=== PATIENT | male | born 1940 | race American Indian/Alaskan Native ===

== ENCOUNTER 2020-01-01 07:48 | Day surgery (SDC) | payer MEDICARE ==
[2020-01-01] MEDS ORDERED: SODIUM CHLORIDE 0.9% 500 ML 500 ML IV SCH (09:00)
[2020-01-01 09:28] LABS: INR 1.34 (0.87-1.13)
[2020-01-01 09:29] LABS: Hematocrit 31.5 % (35.5-45.6); Hemoglobin 9.8 gm/dl (11.8-15.2); Mean Corpuscular HGB Conc 31 % (32-34); Mean Corpuscular Volume 92 fl (84-94); Partial Thromboplastin Time 40.2 Sec. (24.2-36.6); Platelet Count 386 K/mm3 (140-440); Red Blood Count 3.42 M/mm3 (3.65-5.03); Red Cell Distribution Width 14.3 % (13.2-15.2)
[2020-01-01] MEDS ORDERED: oxyCODONE /ACETAMINOPHEN 5-325MG TAB PO ONE (09:30)
[2020-01-01 09:45] LABS: BUN/Creatinine Ratio 26; Blood Urea Nitrogen 31 mg/dL (9-20); Calcium 8.7 mg/dL (8.4-10.2); Hemolysis Index 0
[2020-01-01] MEDS ORDERED: LIDOCAINE 1%/EPINEPHRINE 1:100,000 VIAL (20 ML) INFILTRATI ONE (10:39)
[2020-01-01] MEDS ORDERED: HEPARIN 10,000 UNITS/10 ML VIAL ONE (10:39)
[2020-01-01] MEDS ORDERED: MIDAZOLAM 2 MG/2 ML INJ ONE (10:40)
[2020-01-01] MEDS ORDERED: fentaNYL 100 MCG/2 ML INJ ONE (10:40)
--- NOTE | 2020-01-01 10:46 | Short Stay Summary ---
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 who presents for diagnostic angiogram - History Principal diagnosis: Bilateral lower extremity gangrene Past Medical History: CAD, diabetes, PVD, stroke - Allergies and Medications Current Medications: Allergies No Known Allergies Allergy (Unverified 01/01/20 07:51) Home Medications Medication Instructions Recorded Confirmed Last Taken Type Aspirin EC [Halfprin EC] 81 mg PO DAILY 01/01/20 01/01/20 12/31/19 History 81 mg Clindamycin [Clindamycin CAP] 1 tab PO TID 01/01/20 01/01/20 12/31/19 History 300 mg Furosemide [Lasix TAB] 20 mg PO DAILY 01/01/20 01/01/20 12/31/19 History 20 mg Insulin Detemir [Levemir Flextouch] 20 units SQ QHS 01/01/20 01/01/20 12/30/19 History 20 units carvediloL [Coreg] 6.25 mg PO DAILY 01/01/20 01/01/20 12/31/19 History 6.25mg oxyCODONE /ACETAMINOPHEN [Percocet 1 tab PO Q4H PRN 01/01/20 01/01/20 01/01/20 09:16 History 5/325 mg] 1 tab Active Medications Sodium Chloride (Nacl 0.9% 500 Ml) 500 mls @ 50 mls/hr IV DIRECT GORDON Last Admin: 01/01/20 09:17 Dose: 50 mls/hr Documented by: - Physical exam General appearance: no acute distress Lungs: Normal air movement Extremities: abnormal (gangrene of the lower extremities, nonpalpable pedal pulses) - Brief post op/procedure progress note Date of procedure: 01/01/20 Pre-op diagnosis: Bilateral lower extremity peripheral vascular disease with g maria antonia Post-op diagnosis: same Procedure: 1. Ultrasound-guided access of the left radial artery. 2. Selection of the abdominal aorta with angiography. 3. Selection of the right superficial femoral artery with angiography of the right lower extremity. 4. Selection of the left superficial femoral artery with angiography of the left lower extremity. Anesthesia: local Surgeon: REI FONTENOT Estimated blood loss: minimal Condition: stable - Hospital course Hospital course: Patient tolerated the procedure well. No immediate postprocedural complication. Patient will need revascularization of the bilateral lower extremities, left side for right. - Disposition Condition at discharge: Stable Disposition: [id number] TO HOME OR SELFCARE - Discharge Diagnoses (1) Diabetes mellitus due to underlying condition with foot ulcer Status: Acute (2) Gangrene due to peripheral vascular disease Status: Acute (3) Critical ischemia of lower extremity Status: Acute Short Stay Discharge Plan Activity: advance as tolerated Weight Bearing Status: Weight Bear as Tolerated Diet: regular Wound: keep clean and dry, other (Do not lift more than 10 pounds with left upper extremity for 1 week) Follow up with: PRIMARY CAREMD [Primary Care Provider] - 7 Days Forms: Post Arteriogram Instruct
[2020-01-01] MEDS ORDERED: NITROGLYCERIN SYRINGE 3 ML ONE (10:49)
[2020-01-01] MEDS: HEPARIN/NS 5000 UNIT/500ML 500 ML IR ONE ×2 (11:02→11:04)
[2020-01-01] MEDS: VERAPAMIL 5 MG/2 ML INJ ONE ×2 (11:02→11:05)
[2020-01-01 12:19] LABS: Basophils % (Manual) 0 % (0.0-1.8); Eosinophils % (Manual) 0 % (0.0-4.3); Total Cells Counted 100
[2020-01-01 12:20] LABS: Platelet Estimate Consistent w Auto; RBC Morphology Normal
--- NOTE | 2020-01-01 12:28 | Operative Report ---
Operative Report Operative Report: EXAM: 1. Ultrasound-guided access of the left radial artery. 2. Selection of the abdominal aorta with angiography. 3. Selection of the right superficial femoral artery with angiography of the right lower extremity. 4. Selection of the left superficial femoral artery with angiography of the left lower extremity. DATE: 01/01/2020 YACHT BUILDER: REI FONTENOT MD INDICATION: Bilateral lower extremity gangrene with nonpalpable pedal pulses with critical limb ischemia requiring diagnostic angiography. MEDICATIONS: Please see nursing report for full details. DEVICES: None. CONTRAST: Please see Shoe Repairer Apprentice report for full details. PROCEDURE: The risks, benefits, and alternatives were discussed with the patient; written informed consent was obtained. The left wrist was prepped and draped in a sterile fashion. The left radial artery was patent with ultrasound and had a strong pulse. Under direct sonographic guidance, the artery was accessed with a 21-gauge micropuncture needle. 0.018 inch wire was passed into the radial artery. Needle was exchanged for a 4/5 glide sheath slender sheath. Radial cocktail was administered. Catheter was then used to select the descending thoracic aorta, and the abdominal aorta and the infrarenal abdominal aorta. Digital subtraction angiography was performed. Catheter was exchanged for a 4 [place] [employer] angled catheter and used to select the right superficial femoral artery. Digital subtraction angiography was performed. Catheter was retracted and angiography was repeated multiple times until the entire right lower extremity was imaged. Catheter was then used to select the left superficial femoral artery and digital subtraction angiography was performed. Catheter was retracted and angiography was repeated multiple times until the entire left lower extremity was imaged. At this point, all wires, catheters, and sheaths were removed and TR band was applied. Patient tolerated the procedure well. No immediate postprocedural complication. FINDINGS: Aorta: The infrarenal abdominal aorta is patent. Right lower extremity: The right common iliac artery, external iliac artery, common femoral artery, and profunda femoral artery are patent. The right superficial femoral artery demonstrates multifocal 50 to 70% narrowings in the proximal and midportion of the vessel with a focal 80 to 90% narrowing in the distal portion of the superficial femoral artery. The [id number] popliteal artery has a 20 to 30% narrowing, and the midportion of the vessel has a focal 50% narrowing. This tapers into a focal 90% below the knee popliteal artery narrowing, but the below the knee popliteal artery a centimeter below that is focal narrowing becomes occluded. It does not reconstitute until the mid posterior tibial artery which is patent until the ankle at which point there is a 3 cm 90% narrowing. The anterior tibial and peroneal arteries do not reconstitute. Left lower extremity: The left common iliac artery, external iliac artery, common femoral artery, and profundofemoral artery are patent. The left proximal superficial femoral artery has a 30% narrowing, the midportion has a focal 60% narrowing, and the distal portion of the artery has a focal 80% narrowing. The popliteal artery has a [id number] 40% narrowing and a mid knee 50% narrowing. There is an unusual branching pattern from the popliteal artery with the anterior tibial artery arising from the level of the mid knee with a large collateral arising from it. Anterior tibial artery seems to become occluded within the proximal to mid calf without reconstitution. The tibioperoneal trunk has a 5 to 10 cm segment of underlying 50% to 60% narrowing with a superimposed 99% narrowing. The proximal posterior tibial artery has a focal 99% narrowing, the midportion of the vessel has a short segment occlusion, and the distal portion of the vessel has a 40% narrowing. There is underlying 30 to 40% narrowings in the posterior tibial artery. The peroneal artery is not well visualized and appears occluded without reconstitution. IMPRESSION: Patient has severe bilateral lower extremity peripheral vascular disease. Discussed options including revascularization, but patient is uncertain if he wants to have any more procedures performed. I explained to the patient that the alternative would be hospice/palliation which is reasonable, if he desires this. Otherwise, would recommend revascularization to allow for limb salvage.
[2020-01-01 14:27] VITALS: BP 113/70
== END 2020-01-01 16:17 | disposition home or self-care (01) ==
LOC: CATHLABREC 07:48
PROVIDERS: ATTEND Radiology Diagnostic Radiology
DX: I70.245 Atherosclerosis of native arteries of left leg with ulceration of other part of foot (principal); I10 Essential (primary) hypertension; I99.8 Other disorder of circulatory system; E11.51 Type 2 diabetes mellitus with diabetic peripheral angiopathy without gangrene; Z79.899 Other long term (current) drug therapy; Z79.82 Long term (current) use of aspirin; Z86.73 Personal history of transient ischemic attack (TIA), and cerebral infarction without residual deficits
CPT/HCPCS: 36247; 36415; 75625; 75716; 76937; 80048; 85007; 85025; 85610; 85730; C1769; C1887; C1894; J1644; J2250; J3010; J7040; 36200; 75710; Q9967